=== PATIENT | male | born 1975 | race Caucasian/White ===

== ENCOUNTER → 2021-01-05 | Day surgery (SDC) | payer OTHER ==
[~2021-01-05] VITALS: Ht 175.3 cm; Wt 83.9 kg
[~2021-01-05] MED LIST: AMLODIPINE BESY10 MG PO; ASPIRIN CHEWABL81 MG PO; ATORVASTATIN CA20 MG PO; BENADRYL25 MG PO; BUSPAR5 MG PO; BUSPIRONE HCL7.5 MG PO; CETIRIZINE HCL10 MG PO; CHANTIX1 MG PO; CYMBALTA20 M1 PO; FLONASE ALLER15.8 ML; FOLIC ACID1 M1 PO; GABAPENTIN600 MG PO; GABAPENTIN800 MG PO; IBUPROFEN800 MG PO; INCRUSE ELLI62.5 MCG INH; LEVSIN0.125 MG SC/PO; LISINOPRIL 10MG10 MG PO; LOPRESSOR25 MG PO; MELOXICAM15 MG PO; METFORMIN HCL500 M3 PO; OMEPRAZOLE40 MG PO; PROAIR HFA8.5 GM INH; RANITIDINE HCL300 MG PO; REVATIO 20MG TA20 MG PO; VITAMIN D3 PO
[2021-01-05 07:26] LABS: BUN/CREAT RATIO (CALC) 19.8 RATIO; CREATININE 0.86 mg/dL (0.67-1.17); POTASSIUM 4.1 mmol/L (3.5-5.1)
== END | disposition home or self-care (01) ==
LOC: FAS 05:54
PROVIDERS: Anesthesiology
DX: G56.03 Carpal tunnel syndrome, bilateral upper limbs (principal); Z88.6 Allergy status to analgesic agent; Z88.8 Allergy status to other drugs, medicaments and biological substances; Z79.82 Long term (current) use of aspirin
CPT/HCPCS: 36415; 80048; J1100; J2001; J2250; J2370; J2405; J2704; J3010; J7120

== ENCOUNTER → 2021-02-09 | Day surgery (SDC) | payer OTHER ==
[~2021-02-09] VITALS: Ht 175.3 cm; Wt 88.9 kg
[~2021-02-09] MED LIST changes: +NORCO 5/3251 EACH PO; +TRAZODONE 50MG50 MG PO
[2021-02-09 07:13] LABS: BUN/CREAT RATIO (CALC) 18.9 RATIO; CREATININE 0.9 mg/dL (0.67-1.17); POTASSIUM 3.9 mmol/L (3.5-5.1)
== END | disposition home or self-care (01) ==
LOC: FAS 05:58
PROVIDERS: Anesthesiology
DX: G56.02 Carpal tunnel syndrome, left upper limb (principal)
CPT/HCPCS: 36415; 80048; J2250; J2405; J2704; J3010; J7120

== ENCOUNTER → 2021-03-30 | Day surgery (SDC) | payer OTHER ==
[~2021-03-30] VITALS: Ht 175.3 cm; Wt 88.9 kg
[~2021-03-30] MED LIST changes: +TRAZODONE 100M100 MG PO
[2021-03-30 08:47] LABS: HCT 42.3 % (42.0-52.0); HGB 14.6 g/dl (13.2-18.0); MCH 30.5 pg (25.0-31.0); MCHC 34.5 g/dL (32.0-36.0); MCV 88.5 fL (78.0-100.0); MPV 9.3 fL (6.0-9.5); RBC 4.78 M/uL (4.70-6.00); RDW 13.1 % (11.5-14.0); WBC 7.6 K/uL (4.0-10.5)
[2021-03-30 09:37] LABS: ALBUMIN 3.7 g/dL (3.4-5.0); BILIRUBIN - TOTAL 0.4 mg/dL (0.2-1.0); BUN/CREAT RATIO (CALC) 17.6 RATIO; CREATININE 0.91 mg/dL (0.67-1.17); GLOBULIN (CALCULATION) 3.3 g/dL; POTASSIUM 3.8 mmol/L (3.5-5.1)
== END | disposition home or self-care (01) ==
LOC: FAS 07:52
PROVIDERS: Orthopaedic Surgery
DX: M75.111 Incomplete rotator cuff tear or rupture of right shoulder, not specified as traumatic (principal); M75.51 Bursitis of right shoulder; M75.91 Shoulder lesion, unspecified, right shoulder
CPT/HCPCS: 36415; 71045; 80053; 93005; C1713; J0171; J0690; J1170; J2250; J2405; J2704; J2710; J2795; J3010; J7120